=== PATIENT | male | born 1970 | race Caucasian/White ===

== ENCOUNTER 2023-10-24 10:40 | Emergency (ER) | payer BC ==
[2023-10-24 12:32] LABS: APPEARANCE,URINE CLEAR (Clear); BILIRUBIN,URINE 1+ (Negative); COLOR,URINE DARK YELLOW (Yellow); GLUCOSE,URINE NEGATIVE (Negative); KETONES,URINE NEGATIVE (Negative); LEUKOCYTE ESTERASE,URINE NEGATIVE (Negative); NITRITE,URINE NEGATIVE (Negative); OCCULT BLOOD,URINE 3+ (Negative); PH,URINE 7.5 (5.0-8.0); PROTEIN,URINE 1+ (Negative)
[2023-10-24 12:56] LABS: BASOPHILS PERCENT AUTO 0.8 % (0.0-1.0); EOSINOPHILS ABSOLUTE AUTO 0.1 K/mm3 (0.0-0.4); EOSINOPHILS PERCENT AUTO 3.8 % (0.0-6.0); HEMATOCRIT 35.8 % (42.0-52.0); HEMOGLOBIN 12.8 gm/dl (14.0-18.0); IMMATURE GRAN ABSOLUTE AUTO 0.02 K/mm3 (0.00-0.05); IMMATURE GRAN PERCENT AUTO 0.5 % (0.0-0.4); LYMPHOCYTES ABSOLUTE AUTO 0.9 K/mm3 (1.0-4.8); LYMPHOCYTES PERCENT AUTO 24.6 % (24.0-44.0); MEAN CORPUSCULAR HEMOGLOBIN 35.8 pg (28.0-32.0); MEAN CORPUSCULAR HGB CONC 35.8 g/dl (32.0-36.0); MEAN PLATELET VOLUME 9.7 fl (9.4-12.4); MONOCYTES ABSOLUTE AUTO 0.4 K/mm3 (0.0-0.8); MONOCYTES PERCENT AUTO 11.5 % (0.0-8.0); NEUTROPHILS ABSOLUTE AUTO 2.2 K/mm3 (1.8-7.7); NEUTROPHILS PERCENT AUTO 58.8 % (41.0-71.0); RED BLOOD CELL COUNT 3.58 M/mm3 (4.52-5.90); WHITE BLOOD CELL COUNT,WBC 3.66 K/mm3 (3.9-11.3)
[2023-10-24 13:02] LABS: PLATELET COUNT,PLT 56 K/mm3 (150-400)
[2023-10-24 13:19] LABS: A/G RATIO 0.7 (1-2); ALBUMIN 2.7 g/dl (3.4-5.0); ANION GAP 11.4 (5-15); BILIRUBIN TOTAL 5.5 mg/dL (0.2-1.0); C-REACTIVE PROTEIN 0.38 mg/dL (<0.30); CALCIUM 8.6 mg/dL (8.5-10.1); EST CRCL DRUG DOSING (CG) 102.13 mL/min; POTASSIUM,K 4.4 mEq/L (3.5-5.1)
[2023-10-24 13:24] LABS: CREATININE 0.8 mg/dL (0.7-1.3); PROTEIN TOTAL,TP 6.5 g/dl (6.4-8.2)
[2023-10-24 13:50] LABS: SLIDE REVIEW ABNORMAL SMEAR
[2023-10-24] MEDS ORDERED: Sodium Chloride 0.9% 100 ML IV SCH (14:15)
[2023-10-24] MEDS: Iopamidol 612 MG/ML 100 ML Bottle IVPUSH ONE (14:24)
[2023-10-24] MEDS: Sodium Chloride 0.9% 10 ML Syringe FLUSH PRN (14:24)
[2023-10-24] MEDS: Iopamidol 612 MG/ML 30 ML SDV IVPUSH ONE (14:24)
[2023-10-24] MEDS ORDERED: Sodium Chloride 0.9% 10 ML Syringe FLUSH ONE (14:30)
[2023-10-24 14:32] LABS: RBC,URINE >100 /hpf (0-5); WBC,URINE 0-5 /hpf (0-5)
[2023-10-24 14:33] LABS: BACTERIA,URINE FEW /hpf (FEW); MUCUS,URINE RARE /hpf (FEW); SQUAMOUS EPITHELIAL CELLS,UR 0-5 /hpf (0-5)
[2023-10-24 19:50] VITALS: BP 149/77; PULSE 88
== END 2023-10-24 16:30 | disposition home or self-care (01) ==
LOC: JD.ED 10:40
DX: R31.9 Hematuria, unspecified (principal); M54.50 Low back pain, unspecified; M54.6 Pain in thoracic spine; R17 Unspecified jaundice; Z88.8 Allergy status to other drugs, medicaments and biological substances; Z79.899 Other long term (current) drug therapy; V86.56XA Driver of dirt bike or motor/cross bike injured in nontraffic accident, initial encounter; Y93.89 Activity, other specified
CPT/HCPCS: 36415; 70450; 70450-26; 71260; 71260-26; 72128; 72128-26; 72131; 72131-26; 74177; 74177-26; 80053; 81001; 85025; 86140; 99285; J3490; Q9967